=== PATIENT | male | born 1955 | race Caucasian/White ===

== ENCOUNTER 2017-07-15 10:49 | Emergency (ER) | payer OTHER, BC ==
[2017-07-15 11:11] LABS: BASOPHIL COUNT 0.1 K/uL (0-0.1); EOSINOPHIL COUNT 0.3 K/uL (0-0.3); HEMATOCRIT 43.4 % (38.0-50.0); IMMATURE GRANULOCYTE (%) 0.6 % (0.0-0.7); IMMATURE GRANULOCYTE COUNT 0.1 K/uL; LYMPHOCYTE COUNT 2.6 K/uL (1.0-2.8); MCH 32.2 PG (29.0-34.0); MCHC 33.2 G/DL (30.0-36.0); MCV 97.1 FL (86-99); MEAN PLAT.VOLUME 9.5 uM^3 (9.0-12.4); MONOCYTE (%) 8.3 % (3-12); MONOCYTE COUNT 0.9 K/uL (0-0.8); NEUTROPHIL (%) 63.8 % (45-76); PLATELET COUNT 270 K/uL (156-360); RBC DIS.WIDTH-CV 13.6 % (11.8-14.6); RBC DIS.WIDTH-SD 48.8 % (39-53); RED BLOOD COUNT 4.47 M/uL (4.00-5.50)
[2017-07-15 11:20] LABS: AMYLASE 39 IU/L (1-118); CHLORIDE 105 mEq/L (99-109); POTASSIUM 3.8 mEq/L (3.7-5.4); SODIUM 142 mEq/L (136-147)
[2017-07-15 11:21] LABS: GLUCOSE 111 mg/dL (70-99)
[2017-07-15 11:23] LABS: ANION GAP 11 MEQ/L (2-14)
[2017-07-15 11:24] LABS: SERUM ETHYL ALCOHOL < 10 mg/dL
[2017-07-15 11:25] LABS: GFR ESTIMATE (CALCULATED) > 59 mL/min/
[2017-07-15 11:26] LABS: UREA NITROGEN (BUN) 11 mg/dL (9-23)
[2017-07-15 11:28] LABS: LIPASE 22 U/L (1.0-51.0)
[2017-07-15] MEDS ORDERED: TYLENOL WITH C1 EACH PO (14:05)
== END 2017-07-15 15:29 | disposition home or self-care (01) ==
LOC: TRA 10:49
PROVIDERS: Emergency Medicine
PROC: 3E0234Z Introduction of Serum, Toxoid and Vaccine into Muscle, Percutaneous Approach (ICD-10-PCS; principal; 2017-07-15)
DX: S06.9X9A Unspecified intracranial injury with loss of consciousness of unspecified duration, initial encounter (principal); S80.02XA Contusion of left knee, initial encounter; S50.312A Abrasion of left elbow, initial encounter; M25.552 Pain in left hip; W20.8XXA Other cause of strike by thrown, projected or falling object, initial encounter; Y99.0 Civilian activity done for income or pay; Z23 Encounter for immunization
CPT/HCPCS: 70450; 71260; 72125; 72129; 72132; 73502; 73560; 74177; 80048; 81003; 82150; 83690; 85025; 86850; 86900; 86901; 99281; 99285; G0480; J2270; J2405

== ENCOUNTER 2017-12-24 15:32 | Emergency (ER) | payer BC ==
[~2017-12-24] VITALS: Ht 165.1 cm; Wt 84.3 kg
[~2017-12-24 15:32] MED LIST: TYLENOL WITH C1 EACH PO
[2017-12-24 18:21] LABS: HEMOGLOBIN 14.4 G/DL (12.5-16.6); MCH 32.7 PG (29.0-34.0); MCHC 34.3 G/DL (30.0-36.0); MCV 95.5 FL (86-99); PLATELET COUNT 208 K/uL (156-360); RBC DIS.WIDTH-CV 12.9 % (11.8-14.6); RBC DIS.WIDTH-SD 46.1 % (39-53)
[2017-12-24 18:32] LABS: CHLORIDE 103 mEq/L (99-109); POTASSIUM 3.9 mEq/L (3.7-5.4); SODIUM 138 mEq/L (136-147)
[2017-12-24 18:33] LABS: GLUCOSE 91 mg/dL (70-99)
[2017-12-24 18:37] LABS: CREATININE 0.6 mg/dL (0.6-1.3); GFR ESTIMATE (CALCULATED) > 59 mL/min/ (58.99-99999)
[2017-12-24 18:38] LABS: UREA NITROGEN (BUN) 12 mg/dL (9-23)
[2017-12-24 18:52] LABS: ERTH.SED.RATE 9 MM/HR (0-20)
[2017-12-24 19:10] LABS: C-REACTIVE PROTEIN 1.5 MG/L (0-10)
[2017-12-24] MEDS ORDERED: LIDODERM 5% P1 PATCH TD (20:00)
[2017-12-24] MEDS ORDERED: PREDNISONE10 MG PO (20:00)
[2017-12-24] MEDS ORDERED: MOTRIN800 MG PO (20:00)
[2017-12-24 20:09] VITALS: BP 169/86
== END 2017-12-24 20:09 | disposition home or self-care (01) ==
LOC: EME 15:32
PROVIDERS: Nurse Practitioner Family
DX: M79.605 Pain in left leg (principal); M16.12 Unilateral primary osteoarthritis, left hip
CPT/HCPCS: 73700; 80048; 85027; 85651; 86140; 93971; 99281; 99284; J1885